=== PATIENT | female | born 1990 | race Caucasian/White ===

== ENCOUNTER 2018-03-25 18:10 | Emergency (ER) | payer MEDICAID ==
[2018-03-25 18:24] VITALS: BP 158/110
[2018-03-25] MEDS ORDERED: Sodium Chloride 0.9% 5 ML Syringe FLUSH PRN (18:41)
[2018-03-25] MEDS ORDERED: Ketorolac 30 MG/ML SDV IVPUSH ONE (18:51)
--- NOTE | 2018-03-25 18:51 | EDM.PDOC ---
ED HPI GENERAL MEDICAL PROBLEM - General Chief Complaint: Genitourinary Problem Stated Complaint: KIDNEY PAIN Time Seen by Provider: 03/25/18 18:25 Source of Information: Reports: Patient History Limitations: Reports: No Limitations - History of Present Illness INITIAL COMMENTS - FREE TEXT/NARRATIVE: 27 YO WF with PMH of recurrent UTI's presents to ER complaining of left flank pain which has been recurrent but worse x 5 days. Pt reports she developed pain with associated nausea 5 days ago and had 1 episode of vomiting. Pt reports pain became more severe today prompting ER evaluation. Pt denies any dysuria, frequency or urgency. Pt denies any fever/chills or N/V. Pt reports pain is reproduced with movement. Pt denies any radiating pain, no saddle parathesias, no bowel or bladder dysfunction. Onset Date: 03/20/18 Duration: Day(s): (5) Location: Reports: Back Quality: Reports: Ache Severity: Moderate Improves with: Reports: Rest Worsens with: Reports: Movement Associated Symptoms: Reports: No Other Symptoms Treatments CORN SHELLER: Reports: Other (see below) Other Treatments CORN SHELLER: advil Left Lower Flank Pain Score (Numeric/FACES): 8 - Related Data Allergies Allergy/AdvReac Type Severity Reaction Status Date / Time povidone-iodine Allergy Hives Verified 03/25/18 18:24 [From Betadine] soap [From Betadine] Allergy Hives Verified 03/25/18 18:24 Home Meds: Home Meds lamoTRIgine [Lamotrigine] 200 mg PO DAILY 06/22/16 [History] Methocarbamol [Robaxin-750] 750 mg PO Q8HR PRN #15 tablet 03/25/18 [Rx] hydrOXYzine HCl [Atarax] 25 mg PO BID 03/25/18 [History] predniSONE [Prednisone] 20 mg PO DAILY #15 tablet 03/25/18 [Rx] traMADol HCl [Ultram] 50 mg PO Q4HR PRN #12 tablet 03/25/18 [Rx] Past Medical History - Past Health History Medical/Surgical History: Denies Medical/Surgical History (except) Gastrointestinal History: Reports: None Musculoskeletal History: Reports: None Neurological History: Reports: Migraines Psychiatric History: Reports: Depression - Infectious Disease History Infectious Disease History: Reports: Chicken Pox - Past Surgical History Musculoskeletal Surgical History: Reports: Arthroscopic Knee, Other (See Below) Social & Family History - Family History Family Medical History: Noncontributory ED ROS GENERAL - Review of Systems Review Of Systems: See Below Constitutional: Reports: No Symptoms HEENT: Reports: No Symptoms Respiratory: Reports: No Symptoms Cardiovascular: Reports: No Symptoms Endocrine: Reports: No Symptoms GI/Abdominal: Reports: No Symptoms : Reports: No Symptoms Musculoskeletal: Reports: Back Pain Skin: Reports: No Symptoms Neurological: Reports: No Symptoms Psychiatric: Reports: No Symptoms Hematologic/Lymphatic: Reports: No Symptoms ED EXAM, RENAL/ - Physical Exam Exam: See Below Exam Limited By: No Limitations General Appearance: Alert, WD/WN, No Apparent Distress Head: Atraumatic, Normocephalic Neck: Normal Inspection, Supple, Non-Tender, Full Range of Motion Respiratory/Chest: No Respiratory Distress, Lungs Clear, Normal Breath Sounds, No Accessory Muscle Use, Chest Non-Tender Cardiovascular: Normal Peripheral Pulses, Regular Rate, Rhythm, No Edema, No Gallop, No JVD, No Murmur, No Rub GI/Abdominal: Normal Bowel Sounds, Soft, Non-Tender, No Organomegaly, No Distention, No Abnormal Bruit, No Mass Back Exam: CVA Tenderness (L), Muscle Spasm, Paraspinal Tenderness Extremities: Normal Inspection, Normal Range of Motion, Non-Tender, Normal Capillary Refill, No Pedal Edema Neurological: Alert, Oriented, CN II-XII Intact, Normal Cognition, Normal Gait, Normal Reflexes, No Motor/Sensory Deficits Psychiatric: Normal Affect, Normal Mood Skin Exam: Warm, Dry, Intact, Normal Color, No Rash Lymphatic: No Adenopathy Course - Vital Signs Last Recorded V/S: Last Vital Signs Temp 36.4 C 03/25/18 18:19 Pulse 93 03/25/18 18:19 Resp 20 03/25/18 18:19 BP 158/110 H 03/25/18 18:19 Pulse Ox 100 03/25/18 18:19 - Orders/Labs/Meds Orders: Active Orders 24 hr Category Date Time Status Peripheral IV Care [RC] . DIRECTED Care 03/25/18 18:41 Active URINALYSIS W/MICROSCOPIC [UA W/MICROSCOPIC] [URIN] Stat Lab 03/25/18 18:28 Ordered Sodium Chloride 0.9% [Syrex Flush] Med 03/25/18 18:41 Active 5 ml FLUSH Q8HR PRN Peripheral IV Insertion Adult [OM.PC] Routine Oth 03/25/18 18:41 Ordered Medication Orders Sodium Chloride (Syrex Flush) 5 ml FLUSH Q8HR PRN PRN Reason: Keep Vein Open Labs: Laboratory Tests 03/25/18 03/25/18 03/25/18 Range/Units 18:28 18:45 18:45 WBC 6.4 (5.0-10.0) 10^3/uL RBC 5.07 (3.80-5.50) 10^6/uL Hgb 14.2 (12.0-16.0) g/dL Hct 42.0 (37.0-47.0) % MCV 82.8 (82.0-92.0) fL MCH 28.0 (27.0-31.0) pg MCHC 33.8 (32.0-36.0) g/dL RDW 12.9 (11.5-14.5) % Plt Count 274 (150-400) 10^3/uL MPV 8.3 (7.4-10.4) fL Immature Gran % (Auto) 0.3 (0.0-5.0) % Neut % (Auto) 56.7 (50.0-70.0) % Lymph % (Auto) 29.6 (20.0-40.0) % Orange % (Auto) 8.2 H (2.0-8.0) % Eos % (Auto) 4.7 H (1.0-3.0) % Baso % (Auto) 0.5 (0.0-1.0) % Immature Gran # (Auto) 0.02 (0.00-0.50) 10^3/uL Neut # (Auto) 3.62 (2.50-7.00) 10^3/uL Lymph # (Auto) 1.89 (1.00-4.00) 10^3/uL Orange # (Auto) 0.52 (0.10-0.80) 10^3/uL Eos # (Auto) 0.30 (0.10-0.30) 10^3/uL Baso # (Auto) 0.03 (0.00-0.10) 10^3/uL Sodium 138 (136-145) mmol/L Potassium 4.4 (3.3-5.3) mmol/L Chloride 102 (98-115) mmol/L Carbon Dioxide 26.3 (21.0-32.0) mmol/L Anion Gap 14.1 (5-15) mmol/L BUN 17 (6-25) mg/dL Creatinine 0.89 (0.51-1.17) mg/dL Est Cr Clr Drug Dosing 87.31 mL/min Estimated GFR (MDRD) > 60 mL/min Glucose 102 mg/dL Calcium 9.0 (8.7-10.3) mg/dL HCG, Qual Negative (NEGATIVE) Specimen Type Urincc Urine Color Yellow (YELLOW) Urine Appearance Slightly cloudy H (CLEAR) Urine pH 5.5 (5.0-9.0) Ur Specific Maxwell >= 1.030 (1.005-1.030) Urine Protein Negative (NEGATIVE) mg/dL Urine Glucose (UA) Negative (NEGATIVE) mg/dL Urine Ketones Negative (NEGATIVE) mg/dL Urine Occult Blood Trace-lysed H (NEGATIVE) Urine Nitrite Negative (NEGATIVE) Urine Bilirubin Negative (NEGATIVE) Urine Urobilinogen 0.2 (0.2-1.0) E.U./dL Ur Leukocyte Esterase Negative (NEGATIVE) Urine RBC 5-10 H /HPF Urine WBC 5-10 H /HPF Ur Epithelial Cells Moderate H /LPF Urine Bacteria Moderate H (NONE TO FEW) /HPF Urine Mucus Few H (NEGATIVE) /LPF Meds: Medications Generic Name Dose Route Start Last Admin Trade Name Freq PRN Reason Stop Dose Admin Sodium Chloride 5 ml 03/25/18 18:41 Syrex Flush FLUSH Q8HR PRN Keep Vein Open Discontinued Medications Generic Name Dose Route Start Last Admin Trade Name Freq PRN Reason Stop Dose Admin Ketorolac Tromethamine 30 mg 03/25/18 18:51 03/25/18 19:00 Toradol IVPUSH 03/25/18 18:52 30 mg ONETIME ONE Administration Departure - Departure Time of Disposition: 19:30 Disposition: Home, Self-Care 01 Condition: Good Clinical Impression: Lumbar strain Qualifiers: Encounter type: initial encounter Qualified Code(s): S39.012A - Strain of muscle, fascia and tendon of lower back, initial encounter - Discharge Information Prescriptions: traMADol HCl [Ultram] 50 mg PO Q4HR PRN #12 tablet PRN Reason: Pain Methocarbamol [Robaxin-750] 750 mg PO Q8HR PRN #15 tablet PRN Reason: Spasms predniSONE [Prednisone] 20 mg PO DAILY #15 tablet Instructions: Lumbosacral Strain, Low Back Sprain Rehab-SportsMed Referrals: Nila Cifuentes PA-C [Primary Care Provider] - Forms: ED Department Discharge Additional Instructions: 1. Discharge home 2. Ultram 50mg PO Q4-6 PRN pain #12 3. prednisone 60mg PO QD x 5 days 4. robaxin 750mg PO Q8 PRN muscle spasms 5. follow up with clinic for urine culture results 6. consider PT for body mechanics/rehab - My Orders Last 24 Hours: My Active Orders 03/25/18 18:28 URINALYSIS W/MICROSCOPIC [UA W/MICROSCOPIC] [URIN] Stat 03/25/18 18:41 Peripheral IV Care [RC] . DIRECTED Sodium Chloride 0.9% [Syrex Flush] 5 ml FLUSH Q8HR PRN Peripheral IV Insertion Adult [OM.PC] Routine - Assessment/Plan Last 24 Hours: My Active Orders 03/25/18 18:28 URINALYSIS W/MICROSCOPIC [UA W/MICROSCOPIC] [URIN] Stat 03/25/18 18:41 Peripheral IV Care [RC] . DIRECTED Sodium Chloride 0.9% [Syrex Flush] 5 ml FLUSH Q8HR PRN Peripheral IV Insertion Adult [OM.PC] Routine Assessment:: 1. Back pain Plan: 1. Discharge home 2. Ultram 50mg PO Q4-6 PRN pain #12 3. prednisone 60mg PO QD x 5 days 4. robaxin 750mg PO Q8 PRN muscle spasms 5. follow up with clinic for urine culture results 6. consider PT for body mechanics/rehab
[2018-03-25 19:13] LABS: ANION GAP 14.1 mmol/L (5-15); CHLORIDE,CL 102 mmol/L (98-115); SODIUM,NA 138 mmol/L (136-145)
[2018-03-25] MEDS ORDERED: traMADol 50 MG Tab PO PRN (19:33)
== END 2018-03-25 20:00 | disposition home or self-care (01) ==
LOC: KA.ED 18:10
DX: S39.012A Strain of muscle, fascia and tendon of lower back, initial encounter (principal); X58.XXXA Exposure to other specified factors, initial encounter; Z88.8 Allergy status to other drugs, medicaments and biological substances; Z79.899 Other long term (current) drug therapy; Z87.440 Personal history of urinary (tract) infections
CPT/HCPCS: 80048; 81001; 84703; 85025; 96374; 99284; A9270-GY; J1885

== ENCOUNTER 2021-01-16 07:44 | Emergency (ER) | payer MEDICAID ==
[2021-01-16 07:52] VITALS: BP 139/86; PULSE 74
--- NOTE | 2021-01-16 08:47 | EDM.PDOC ---
ED HPI GENERAL MEDICAL PROBLEM - General Chief Complaint: General Stated Complaint: - BLEEDING Time Seen by Provider: 01/16/21 08:20 Source of Information: Reports: Patient History Limitations: Reports: No Limitations - History of Present Illness INITIAL COMMENTS - FREE TEXT/NARRATIVE: Patient presents with vaginal bleeding that started about an hour ago. She is 7 weeks (has 3 children and no history of miscarriages). She says it is more than spotting but not completely soaking her underwear. She denies cramping or pain. She started having morning sickness last week and has been vomiting quite a bit everyday until about 1600. In the evening she can eat a little. No other abnormalities with this compared to previous ones. She is scheduled to see an OB doctor in [place] in about two weeks but so far has only seen her PCP, Dr. Malin with this . Her previous deliveries were in [place]. - Related Data Allergies Allergy/AdvReac Type Severity Reaction Status Date / Time povidone-iodine Allergy Hives Verified 01/16/21 07:56 [From Betadine] soap [From Betadine] Allergy Hives Verified 01/16/21 07:56 Home Meds: Home Meds lamoTRIgine [Lamotrigine] 200 mg PO DAILY 06/22/16 [History] hydrOXYzine HCL [Atarax] 25 mg PO BID 03/25/18 [History] Past Medical History - Past Health History Medical/Surgical History: Denies Medical/Surgical History (except) HEENT History: Reports: None Cardiovascular History: Reports: Hypertension Respiratory History: Reports: None Gastrointestinal History: Reports: None Genitourinary History: Reports: Renal Calculus, UTI, 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: Musculoskeletal History: Reports: Arthritis Neurological History: Reports: Migraines Psychiatric History: Reports: Anxiety, Bipolar, Depression, Mood Swings, Panic Attack, Psych Hospitalization(s) Endocrine/Metabolic History: Reports: Obesity/BMI 30+ Hematologic History: Reports: None Immunologic History: Reports: None Oncologic (Cancer) History: Reports: None Dermatologic History: Reports: None - Infectious Disease History Infectious Disease History: Reports: Chicken Pox, Novel Coronavirus, Shingles - Past Surgical History HEENT Surgical History: Reports: Myringotomy w Tube(s), Oral Surgery Cardiovascular Surgical History: Reports: None Respiratory Surgical History: Reports: None GI Surgical History: Reports: Appendectomy Female Surgical History: Reports: None Endocrine Surgical History: Reports: None Neurological Surgical History: Reports: None Musculoskeletal Surgical History: Reports: Arthroscopic Knee, Other (See Below) Other Musculoskeletal Surgeries/Procedures:: ACL repairs Oncologic Surgical History: Reports: None Dermatological Surgical History: Reports: None Social & Family History - Family History Family Medical History: No Pertinent Family History - Tobacco Use Tobacco Use Status *Q: Current Every Day Tobacco User Years of Tobacco use: 17 Packs/Tins Daily: 0.1 - Caffeine Use Caffeine Use: Reports: Soda Other Caffeine Use: diet - Recreational Drug Use Recreational Drug Use: No ED ROS GENERAL - Review of Systems Review Of Systems: See Below Constitutional: Denies: Fever, Chills, Malaise, Weakness HEENT: Reports: No Symptoms Respiratory: Denies: Shortness of Breath Cardiovascular: Denies: Chest Pain, Lightheadedness, Syncope GI/Abdominal: Reports: Nausea, Vomiting. Denies: Abdominal Pain : Denies: Dysuria Musculoskeletal: Reports: No Symptoms Skin: Denies: Cyanosis, Jaundice, Mottled, Pallor, Diaphoresis Neurological: Denies: Confusion, Dizziness, Seizure, Syncope, Trouble Speaking, Difficulty Walking Psychiatric: Denies: Agitation, Anxiety, Confusion Hematologic/Lymphatic: Denies: Easy Bleeding ED EXAM, GENERAL - Physical Exam Exam: See Below Exam Limited By: No Limitations General Appearance: Alert, WD/WN, No Apparent Distress Eye Exam: Bilateral Eye: EOMI, Normal Inspection, PERRL Ears: Normal External Exam, Hearing Grossly Normal Nose: Normal Inspection, No Blood Throat/Mouth: Normal Inspection, Normal Lips, Normal Voice, No Airway Compromise Head: Atraumatic, Normocephalic Neck: Normal Inspection, Full Range of Motion Respiratory/Chest: No Respiratory Distress, Lungs Clear, Normal Breath Sounds Cardiovascular: Regular Rate, Rhythm, No Murmur GI/Abdominal: Soft, Non-Tender, No Organomegaly, No Distention Back Exam: Normal Inspection, Full Range of Motion. No: CVA Tenderness (L), CVA Tenderness (R) Extremities: Normal Inspection, Normal Range of Motion Neurological: Alert, Oriented, Normal Cognition, No Motor/Sensory Deficits Psychiatric: Normal Affect, Normal Mood Skin Exam: Warm, Dry, Intact, Normal Color, No Rash Course - Vital Signs Last Recorded V/S: Last Vital Signs Temp 98.5 F 01/16/21 07:49 Pulse 74 01/16/21 07:49 Resp 16 01/16/21 07:49 BP 139/86 01/16/21 07:49 Pulse Ox 98 01/16/21 07:49 - Re-Assessments/Exams Free Text/Narrative Re-Assessment/Exam: 01/16/21 08:39 I discussed case with Dr. Malin since she is PCP and has seen patient recently for the . She wants patient to come to her clinic for ultrasound now and will see her after the US. Discussed plan with patient who is agreeable and is discharged in stable condition. Departure - Departure Time of Disposition: 08:36 Disposition: DC/Tfer to Other 70 Condition: Good Clinical Impression: Vaginal bleeding during , antepartum - Discharge Information Referrals: Rebecca Malin MD [Primary Care Provider] - Additional Instructions: Go to [facility] in [place] for ultrasound and evaluation by Dr. Malin. Sepsis Event Note (ED) - Evaluation Sepsis Screening Result: No Definite Risk - Focused Exam Vital Signs: Vital Signs Temp Pulse Resp BP Pulse Ox 01/16/21 07:49 98.5 F 74 16 139/86 98
== END 2021-01-16 08:45 | disposition other institution (70) ==
LOC: KA.ED 07:44
DX: O20.9 Hemorrhage in early pregnancy, unspecified (principal); O13.4 Gestational [pregnancy-induced] hypertension without significant proteinuria, complicating childbirth; Z3A.01 Less than 8 weeks gestation of pregnancy; Z72.0 Tobacco use
CPT/HCPCS: 99284